=== PATIENT | female | born 1950 | race Caucasian/White ===

== ENCOUNTER 2024-09-11 08:20 | Day surgery (SDC) | payer MEDICARE, SELFPAY ==
--- OUTSIDE RECORDS SUMMARY | 2024-08-12 16:56 | XMS_ITS | Patient Health Record ---
Author Organization [facility] Address [address] [place] [address] Care Team Providers Care Carpenters Supervisor Name Role Phone Lexie Prater Primary Care Provider Devonte Jha [phone] Allergies No Known Allergies Reason For Referral No Information Medications Medication SIG (Take, Route, Frequency, Duration) Notes Start Date End Date Status Metoprolol & Diet Manage Prod 50mg Active Rosuvastatin Calcium 5 MG TAKE ONE TABLE T BY MOUTH DAILY AT BEDTIME Oral for 90 Days Active Metoprolol Succinate ER 50 MG TAKE ONE TABLET BY MOUTH EVERY DAY Oral for 90 Days Active Multi Vitamin/Minerals Active Immunizations Vaccine Route Administration Date Status Comme nts Influenza Unknown 12/20/2023 Administered Social History Tobacco Use: Social History Observation Description Date Details (start date - stop date) Never Smoker NA - NA Tobacco Control (Standard) Question Answer Notes Tobacco use: Nonsmoker AUDIT-C (Standard) Question Answer Notes Did you have a drink containing alcohol in the p ast year? No Points 0 Interpretation Negative Vital Signs Temperature 96.9 degrees Fahrenheit 06/19/2024 Blood pressure diastolic 01 mm Hg 06/19/2024 Height 66 in 06/19/2024 Blood pressure systolic 001 mm Hg 06/19/2024 Weight 242.4 lbs 06/19/2024 BMI 39.12 kg/m2 06/19/2024 Procedures Procedure Date Ordered Date Performed Result Body Sit e COLONOSCOPY 06/19/2024 N/A Encounters Encounter Location Date Provider Diagnosis [facility] [address] [place] [address] 06/19/2024 Devonte Olmos Colon cancer screeni ng Z12.11 and Preprocedural examination Z01.818 Assessments Encounter Date Diagnosis (ICD Code) Assessment Notes Treatment Notes Treatment Clinical Notes Section Notes 06/19/2024 Colon cancer screening (ICD-10 - Z12.11) 06/19/2024 Preprocedural examination (ICD-10 - Z01.818) Plan Of Treatment Pending Test Test Name Order Date COLONOSCOPY 06/19/2024 Next Appt Details Provider Name:Devonte Olmos , 09/11/2024 09:40:00 AM, [address] [place] [address] , [place], [place], [id number], Insurance Providers Payer Name Payer Address Payer Phone Subscriber Number Group Number Insured Name Patient Relationship to Insured Coverage Start Date Coverage End Date [facility] [id number] [place] [address] [id number] PERRI TRIPATHI Self - patient is the insured Medical (General) History Medical History History ICD Code Colonoscopy 08/01/2001 HTN hyperlipidemia Denies NH,DM,CVA,Lung disease,renal dise ase Neg. colonoscopy in approx. [address] Amy Marte Surgical History Surgery Date(Month/Year) 2015 carpal tunnel Bilateral
[2024-09-11 08:29] VITALS: BMI 39.1
[2024-09-11 08:51] VITALS: BP 122/68; PULSE 87; RESP 16; TEMP 36.1; O2SAT 97
[2024-09-11] MEDS: Lactated Ringers 1,000 ML 100 ML IVCONT (09:08)
--- NOTE | 2024-09-11 09:47 | HO.ANESPROP2 ---
HPI - Anesthesia Eval Consult details Narrative: colon [facility] Past Medical History Medical History Carpal tunnel syndrome, bilateral Hyperlipidemia HTN (hypertension) Family History Family history of problems with anesthesia: No Surgical History History of Problems with Anesthesia: No Social History Social History Are you a primary housekeeper child care to a significant other at home: No Do you presently have visiting nurse or other home services: No Patient Tobacco Use Status: Never used Tobacco Use of substances other than those prescribed or required for medical reasons: No Have you been hit, kicked, punched, or otherwise hurt by someone within the past year? If so, by whom?: No Are you DNR?: No Advance Directives: No Advance Directives Information Provided: Yes Patient : No Meds Allergies Allergy/AdvReac Type Severity Reaction Status Date / Time No Known Allergies Allergy Verified 09/11/24 08:15 Active Medications: Current Medications Lactated Ringer's (Lr) 1,000 mls @ 100 mls/hr IVCONT .Q10H SINDY Last Admin: 09/11/24 09:08 Dose: 100 mls/hr Sodium Biphosphate/Sodium Phosphate (Sodium Phosphate,[place]-Dibasic 133 Ml Enema) 133 ml RI ONCE PRN PRN Reason: Poor Colonoscopy Prep Results Home Medications ?Medication ?Instructions ?Recorded ?Confirmed ?Last Taken ?Type metoprolol succinate 50 mg 50 mg PO DAILY 09/11/24 09/11/24 09/11/24 07:00 History tablet,extended release 24 hr rosuvastatin 5 mg tablet 5 mg PO BEDTIME 09/11/24 09/11/24 Unknown History Exam Height,Weight and Vital Signs: Height 360 ft 6.77 in Weight 109.9 kg Last Vital Signs Temp 97 F 09/11/24 08:51 Pulse 87 09/11/24 08:51 Resp 16 09/11/24 08:51 BP 122/68 09/11/24 08:51 Pulse Ox 97 09/11/24 08:51 O2 Del Method Room Air 09/11/24 08:51 Airway Mallampati Class: II TM Dist: >3cm Neck ROM: Limited Heart: rrr Lungs: cta Assessment and Plan Assessment Anesthesia Assessment: Anesthesia Plan Discussed and Chart Reviewed Final Anesthetic Review Family History of Problems with Anesthesia: No History of Problems with Anesthesia: No NPO: Yes ASA Class: II Final Preanesthetic Review: No Changes in Pt Med Stat, Meds/Allgs Chart Reviewed, Consent Obtained/Reviewed and Anes Risks/Benef Reviewed Patient Risk: Low Procedure Risk: Low Anesthetic Plan Anesthetic Plan: MAC: Disposition: Standard PACU
[2024-09-11 11:14] VITALS: BP 112/68; PULSE 68; RESP 20; TEMP 36.2; O2SAT 94
--- NOTE | 2024-09-11 11:15 | P.BOP_ITS ---
Brief Operative Note Date of Service: 09/11/24 Pre-op diagnosis: Screening Post-op diagnosis: other (Colon polyp) Procedure: Colonoscopy to the cecum with cold snare polypectomy x 1 Surgeon: Devonte Olmos MD Anesthesia: MAC Was an Principal Gifts Officer used for this Procedure?: No Estimated blood loss (mL): 2.0 Pathology: other (A. Polyp at 30cm) Condition: stable Disposition: PACU
[2024-09-11 11:24] VITALS: BP 123/73; PULSE 65; RESP 18; TEMP 36.1; O2SAT 97
--- NOTE | 2024-09-11 13:14 | OP_ITS ---
DATE OF SERVICE: 09/11/2024 SURGEON: Devonte Olmos MD INDICATIONS: The patient presents for evaluation of colorectal cancer screening. Full consent has been obtained from her for this, including risks of bleeding and perforation. PREOPERATIVE DIAGNOSIS: Colorectal cancer screening. POSTOPERATIVE DIAGNOSIS: PROCEDURE PERFORMED: Colonoscopy to the cecum with cold snare polypectomy x1. ESTIMATED BLOOD LOSS: COMPLICATIONS: ANESTHESIA: Medication use, monitored anesthesia care. ASSISTANTS: SPECIMENS: POSTOPERATIVE DIAGNOSES: Colorectal cancer screening, colon polyp, diverticulosis, and internal hemorrhoids. DESCRIPTION OF PROCEDURE: The patient was placed in the left lateral decubitus position. The digital rectal exam revealed no abnormalities. The Olympus video pediatric colonoscope was entered into the rectum and advanced easily to the cecum. Once in the cecum, I did identify normal-appearing cecal pouch with appendiceal orifice and a normal-appearing ileocecal valve. The entire cecum and ileocecal valve appeared normal. The scope was slowly withdrawn assessing all mucosal surfaces carefully. Preparation was excellent. At 30 cm was an approximately 5 mm grossly adenomatous polyp, which was removed by cold snare polypectomy and recovered by suction. The polypectomy site appeared clean, without any sign of residual polyp nor significant bleeding. I did not visualize any other polyps, colitis, nor angiodysplasia. There was a mild amount of sigmoid diverticulosis. In the rectum, scope was retroflexed visualizing internal hemorrhoids, but no other pathology. The rectal mucosa appeared normal. The scope was straightened and withdrawn from the patient. She tolerated the procedure well and was returned to the recovery area in stable condition. IMPRESSION: 1. Colon polyp. 2. Diverticulosis. 3. Internal hemorrhoids. PLAN: The results of the pathology will be checked. If this is a tubular adenoma, I would recommend a followup coloscopy in 5 years. If it is not adenomatous, i.e., a hyperplastic polyp, then I do not think she would need any further screening colonoscopies going forward. She will otherwise see me on a p.r.n. basis. MD VALDEMAR Roman/JONAH / [id number]
== END 2024-09-11 11:44 | disposition home or self-care (01) ==
PROVIDERS: PCP Internal Medicine; Visit Provider Internal Medicine
PROC: 0DJD8ZZ Inspection of Lower Intestinal Tract, Via Natural or Artificial Opening Endoscopic (ICD-10-PCS; CPT 45378; principal; 2024-09-11 09:40)
DX: Z12.11 Encounter for screening for malignant neoplasm of colon (principal); D12.5 Benign neoplasm of sigmoid colon; K57.30 Diverticulosis of large intestine without perforation or abscess without bleeding; K64.8 Other hemorrhoids; I10 Essential (primary) hypertension; E78.5 Hyperlipidemia, unspecified; Z79.899 Other long term (current) drug therapy
CPT/HCPCS: 45385; 88305; J2003; J2704